=== PATIENT | female | born 1955 | race Caucasian/White ===

== ENCOUNTER → 2022-01-27 16:28 | Outpatient (BNVA) | payer MEDICARE, SELFPAY | PROVIDERS: PCP Family Medicine; Visit Provider Emergency Medicine | DX: M25.532 Pain in left wrist (principal) | CPT/HCPCS: 73110 ==

== ENCOUNTER → 2022-01-29 15:16 | Outpatient (BNVA) | payer MEDICARE, SELFPAY | PROVIDERS: PCP Family Medicine; Visit Provider Orthopaedic Surgery | DX: S52.502A Unspecified fracture of the lower end of left radius, initial encounter for closed fracture (principal); W01.0XXA Fall on same level from slipping, tripping and stumbling without subsequent striking against object, initial encounter | CPT/HCPCS: 25600 ==

== ENCOUNTER → 2022-02-12 12:58 | Outpatient (BNVA) | payer MEDICARE, SELFPAY | PROVIDERS: PCP Family Medicine; Visit Provider Orthopaedic Surgery | DX: S52.502A Unspecified fracture of the lower end of left radius, initial encounter for closed fracture (principal); X58.XXXA Exposure to other specified factors, initial encounter | CPT/HCPCS: 73110; 99213 ==

== ENCOUNTER 2022-02-14 12:37 | Day surgery (SDC) | payer MEDICARE, SELFPAY ==
[2022-02-13 09:25] VITALS: BMI 36.6
[2022-02-14] VITALS (13 sets, daily range): BP systolic 153–197; BP diastolic 77–113; PULSE 86–103; RESP 13–22; TEMP 36.8–37.7; O2SAT 92–97
--- NOTE | 2022-02-14 | XR_ITS ---
WS: [id number] C-ARM RADIOGRAPHS LEFT WRIST; 3 IMAGES HISTORY: orif fracture COMPARISON: 02/12/2022 Intraoperative plate and screw revision of the LEFT radial hardware. XR/XR wrist LT 2V [id number] IMPRESSION: Intraoperative imaging during plate and screw revision distal radial fracture.
--- NOTE | 2022-02-14 | SCC_ITS ---
Procedure done: Open reduction internal fixation left three-part intra-articular distal radius fracture 74 seconds of fluoroscopic guidance, for a cumulative dose of 1.8 mGy, was provided to Dr. Posada by the radiology department. C-arm images of the LEFT wrist were saved for the patient's permanent record. [facility]
[2022-02-14 13:33] LABS: Glucose Point of Care 216 mg/dL (70-110)
[2022-02-14] MEDS: sodium chloride 0.9% 1,000 ML 30 ML IV (13:44)
--- NOTE | 2022-02-14 15:10 | W.PM.OPSUD ---
Surgery/Procedure H&P Update DATE OF PROCEDURE: February 14, 2022 DATE H&P PERFORMED: 02/12/22 H&P UPDATE INFORMATION: I have reviewed H&P completed within last 30 days PREOP DIAGNOSIS: Fracture left distal radius PLANNED PROCEDURE: Operation Date: 02/14/22 14:15 Proposed Procedures p hardware removal and ORIF left distal radius/ 31931, 40190,S52.502A(Left) - Martin Posada MD s ORIF Wrist ORIF Distal Radius(Left) - Martin Posada MD
--- NOTE | 2022-02-14 15:26 | ANES.PREANE2 ---
Pre-Anesthetic Assessment Height/Weight: Height 1.65 m Weight 99.79 kg O2 Del Method 02/14/22 13:34 Preop Diagnosis: Fracture left distal radius Operation Date: 02/14/22 14:15 Proposed Procedures p hardware removal and ORIF left distal radius/ 89454, 09023,S52.502A(Left) - Martin Posada MD s ORIF Wrist ORIF Distal Radius(Left) - Martin Posada MD Familial anesthetic complications: none Was Beta Nubia taken within 24 hours: Yes Was Clonidine taken within 24 hours: N/A Last intake: Intake Last Liquid Date 02/14/22 Last Liquid Time 08:00 Last Solid Date 02/13/22 Last Solid Time 19:00 Social No alcohol and No tobacco Exam alert, oriented x 3, clear to auscultation bilaterally and regular rate & rhythm Airway Submandibular: within normal limits Cervical ROM: within normal limits Mallampati: Class II Dentition: false (upper) CV/HEM Hypertension Metabolic Hyperlipidemia and Morbid Obesity Anesthetic Plan ASA status: 3 Anesthesia: General Medications/Allergies Home Medications Medication Instructions Recorded Confirmed Last Taken Type atorvastatin 40 mg tablet 40 mg PO DAILY 01/27/22 02/14/22 02/13/22 History glipizide 10 mg tablet 10 mg PO DAILY 01/27/22 02/13/22 Unknown History rivaroxaban 2.5 mg tablet (Xarelto) 20 mg PO DAILY 01/27/22 02/14/22 02/12/22 History semaglutide 14 mg tablet (Rybelsus) 14 mg PO DAILY 02/13/22 02/13/22 Unknown History clonazepam 1 mg tablet (Klonopin) 1 mg 02/14/22 Unknown History cyclobenzaprine 10 mg tablet mg 02/14/22 Unknown History exemestane 25 mg tablet mg 02/14/22 Unknown History hydrocodone 5 mg-acetaminophen 325 1 tab PO Q4H #30 tabs 02/14/22 Unknown Rx mg tablet metoprolol tartrate 100 mg tablet mg 02/14/22 02/14/22 Unknown History Allergies Allergy/AdvReac Type Severity Reaction Status Date / Time Horse/Equine Containing Allergy Intermediate unknown Verified 02/13/22 09:15 Products letrozole Allergy Intermediate unknown Verified 02/13/22 09:15 pneumococcal 7-valent Allergy Intermediate unknown Verified 02/13/22 09:15 conjugate to [From Prevnar] metformin Allergy Intermediate unknown Uncoded 02/13/22 09:15 Current Medications Generic Name Dose Route Start Last Admin Trade Name Freq PRN Reason Stop Dose Admin Sodium Chloride 1,000 mls @ 30 mls/hr 02/14/22 13:00 02/14/22 13:44 Sodium Chloride 0.9% IV 02/15/22 12:59 30 mls/hr .Q24H LIBRADO Administration PFSH Anesthesia Surgical History History of open reduction and internal fixation (ORIF) procedure Social History Smoking and tobacco status: never smoked Data Anesthesia Cardiac Studies: No Data to Display
[2022-02-14] MEDS: ceFAZolin 2,000 MG in sodium chloride 0.9% (plus) 50 ML 100 MG IV (15:50)
[2022-02-14] MEDS: sodium chloride 0.9% 100 mL Bag XX (16:36)
--- NOTE | 2022-02-14 17:13 | PM.OP ---
Operative Report Date of procedure: February 14, 2022 Pre-op diagnosis: Preop Diagnosis Fracture left distal radius Post-op diagnosis: same Post-op diagnosis: Intra-articular three-part fracture left distal radius, complication orthopedic device (distal radial plate closed) Procedure done: Open reduction internal fixation left three-part intra-articular distal radius fracture Removal of hardware left distal radius Implants: Acumed [place] 2 standard distal radius plate, 5 distal locking 2.3 millimeter screws, 3 nonlocking 3.5 millimeters screws Pathology: none sent Surgeon: Martin Posada Anesthesia: General Estimated blood loss (mL): 20 Tourniquet time (min): 47 Findings: The patient had an intra-articular fracture of the left distal radius consisting of a large angulated volar articular fragment and smaller dorsal articular fragment. There is a previously placed right sided Acumed plate and this left wrist with 5 short distal locking screws. 1 distal locking screw was broken. The distal locking screw was left in place as it did not compromise the joint and it was thought that aggressive efforts to remove the screw would roll result in additional distal fragment bone compromise that could compromise fix a Condition: stable Disposition: PACU Procedure: The patient was taken to the operating room and given 2 g of Ancef. A general anesthesia was provided. The left arm was prepped and draped in the usual fashion. A timeout was performed. Incision was made in line with the previous scar with a scalpel blade and dissection carried down through scar tissue to the flexor carpi radialis tendon sheath. The tendon was retracted ulnarly which brought us down to a diminutive scarred pronator quadratus tendon. The scar tissue was divided bringing us down to the volar plate. The 5 distal screws were removed with 1 screw removal being incomplete due to fracture of the hardware. The 3 proximal screws were removed and the plate was elevated. The distal radius was carefully inspected. The fractured distal screw was not visible. It was thought that additional efforts at removal of the buried screw will result in additional bone destruction that could potentially compromise fixation. As the screw was buried in the distal bone and free of the articular surface or tendon compromise it was left in place. Closed reduction was accomplished of the distal radius and it was found with longer to traction and volar force across the distal fragment the fracture could be brought out to just past neutral volar tilt and the dorsal fragment reduced. An Acu-Lock 2 plate was applied. It was provisionally fixed through the oblong hole in the plate position adjusted. With traction and a volar directed force across the dorsal fragments of the 3 distal locking screws were placed. This maintained the distal radius in satisfactory position with screws apparently capturing the dorsal fragment. 2 additional locking screws were then placed. 2 additional proximal 3.5 bicortical screws were then placed. Intraoperative imaging showed satisfactory position of the hardware. The wound was irrigated with saline. No significant pronator quadratus tissue remained for repair. Subcutaneous tissues were closed with 2-0 Vicryl. The skin was closed with skin elisha. Sterile dressings were applied. The patient was taken to outpatient surgery in stable condition.
[2022-02-14] MEDS: HYDROmorphone 1 mg/mL INJ 1 mL 0.5 MG IVP ×2 (17:24→17:31)
[2022-02-14] MEDS: fentaNYL 50 mcg/mL INJ 2mL IVP (17:37)
[2022-02-14] MEDS: meperidine 50 mg/mL INJ 12.5 MG IVP (17:46)
[2022-02-14] MEDS: HYDROcodone-acetaminophen 5-325 mg Tablet 1 TAB PO (18:43)
--- NOTE | 2022-02-14 19:39 | ANE.PACU2 ---
Inpatient post-anesthesia follow up: Airway intact: Yes Vital signs: Temperature 98.2 F Pulse Rate 103 Respiratory Rate 18 Blood Pressure 172/89 Pulse Oximetry 93 Oxygen Delivery Me thod Room Air Oxygen Flow Rate Fraction of Inspir ed Oxygen Hydration adequate: Yes Nausea and vomiting: No Pain level: 3 Mental status: Baseline
== END 2022-02-14 19:10 | disposition home or self-care (01) ==
PROVIDERS: PCP Family Medicine; Visit Provider Orthopaedic Surgery
PROC: (CPT 25609; principal; 2022-02-14 14:05)
PROC: (CPT 25609; 2022-02-14 14:05)
DX: S52.572A Other intraarticular fracture of lower end of left radius, initial encounter for closed fracture (principal); X58.XXXA Exposure to other specified factors, initial encounter; I10 Essential (primary) hypertension; E78.5 Hyperlipidemia, unspecified; E66.01 Morbid (severe) obesity due to excess calories; Z68.36 Body mass index [BMI] 36.0-36.9, adult
CPT/HCPCS: 25609; 36416; 73100; 76000; 82962; C1713; J0690; J1100; J1170; J1200; J1580; J2175; J2250; J2405; J2704; J3010; J7030

== ENCOUNTER → 2022-02-19 13:49 | Outpatient (BNVA) | payer MEDICARE, SELFPAY | PROVIDERS: PCP Family Medicine; Visit Provider Nurse Practitioner Family | DX: S52.502A Unspecified fracture of the lower end of left radius, initial encounter for closed fracture (principal) | CPT/HCPCS: 73110; 99213 ==

== ENCOUNTER → 2022-03-20 15:08 | Outpatient (BNVA) | payer MEDICARE, SELFPAY | PROVIDERS: PCP Family Medicine; Visit Provider Nurse Practitioner Family | DX: X58.XXXA Exposure to other specified factors, initial encounter (principal); S52.502A Unspecified fracture of the lower end of left radius, initial encounter for closed fracture | CPT/HCPCS: 73110; 99024; 99213 ==

== ENCOUNTER → 2022-06-12 13:12 | Outpatient (BNVA) | payer MEDICARE, SELFPAY | PROVIDERS: PCP Family Medicine; Visit Provider Nurse Practitioner Family | DX: Z98.890 Other specified postprocedural states (principal); S52.502D Unspecified fracture of the lower end of left radius, subsequent encounter for closed fracture with routine healing; X58.XXXD Exposure to other specified factors, subsequent encounter | CPT/HCPCS: 73110; 99213; 99214 ==